=== PATIENT | female | born 1990 | race Caucasian/White ===

== ENCOUNTER 2024-03-12 05:23 | Inpatient (IN) ==
[2024-03-12] MEDS: ALBUT/IPRATROP 3MG/0.5MG NEB 3 ML VIAL ONE (05:36)
[2024-03-12] MEDS: ALBUT/IPRATROP 3MG/0.5MG NEB 3 ML VIAL NEB STA ×3 (05:52→06:11)
[2024-03-12] MEDS: methylPREDNISolone 125 MG/2 ML VIAL IV STA (05:54)
--- NOTE | 2024-03-12 05:54 | Emergency Department Note ---
Impression & Plan Dyspnea, Hypoxia, Asthma with exacerbation, URI (upper respiratory infection) ED Provider Note ED Provider Note NAME: ROYER BAH AGE:33 SEX: Female : 1990 ARRIVES VIA: Private vehicle INFORMANT: Patient ED PROVIDER(s): Lilia Dasilva DO CHIEF COMPLAINT: Shortness of breath HPI: This is a 33-year-old female who presents emergency room due to increased shortness of breath. Patient states for the last 2 days she has had cough and cold type symptoms however yesterday she began noticing it was getting harder to breathe and this morning she came in for evaluation. Patient states she does have a history of asthma that is typically very well-controlled and she only uses an inhaler as needed. She is never required hospitalization for shortness of breath or asthma exacerbation. Unknown if recent sick contact as she did travel to [place]. She states no fevers or chills, she has had nasal congestion and rhinorrhea as well as a mild sore throat. She states cough has been productive of a barber sputum, no hemoptysis noted. She denies any accompanying chest pain, abdominal pain, vomiting/diarrhea, or lower extremity swelling. PAST MEDICAL HISTORY:See Below PAST SURGICAL HISTORY:See Below FAMILY HISTORY:See Below SOCIAL HISTORY:See Below HOME MEDICATIONS:See Below ALLERGIES:See Below VITALS:See Below PHYSICAL EXAMINATION: GENERAL: alert, well appearing, well nourished, moderate distress, non-toxic EYE EXAM: normal conjunctiva, PERRL and EOM's grossly intact OROPHARYNX: no exudate, no erythema, lips, buccal mucosa, and tongue normal and mucous membranes are moist NECK: supple, no nuchal rigidity, no adenopathy, non-tender LUNGS: Clear to auscultation. Normal chest wall mechanics, bilateral expiratory wheeze, increased work of breathing, tachypnea noted HEART: no murmurs, S1 normal and S2 normal ABDOMEN: abdomen soft, non-tender, normo-active bowel sounds, no masses, no rebound or guarding. BACK: Back is symmetrical on inspection and there is no deformity SKIN: no rashes, petechiae, orbruising UPPER EXTREMITIES: upper extremities are grossly normal. FROM, nml pulses b/l. LOWER EXTREMITIES: No pitting edema. FROM, nml pulses b/l. NEURO EXAM: Normal sensorium, cranial nerves II-XII grossly intact, normal speech, no facial droop,nogross weakness of arms, no gross weakness of legs. Gross sensation intact. No ataxia. Vital Signs: reviewed and remarkable Differential Diagnosis: pneumonia, bronchitis, COPD/Asthma exacerbation, pneumothorax, pulmonary embolism, congestive heart failure, acute coronary syndrome, as well as others were considered MEDICAL DECISION MAKING: This is a 33-year-old female who presents emergency 5 due to increased shortness of breath. Patient states she began feeling as though she had picked up a cold a couple of days ago however shortness of breath began worsening yesterday. She states her breathing was worse overnight into this morning she felt as though she could not get enough air. On arrival here patient noted to be hypoxic and immediately placed in an available room and started on oxygen via nasal cannula. Patient noted to be tachypneic, with increased work of breathing, and diffuse bilateral wheezing labs drawn and sent, IV established, EKG and chest ray performed at bedside interpreted me and patient monitored on telemetry. She was given a DuoNeb treatment here with improved aeration and subsequent increased wheezing bilaterally. IV Solu-Medrol and IV magnesium added, a second and third DuoNeb added. Patient did have some improvement, however was persistently hypoxic when tested off oxygen between nebs. Repeat exams with improved air movement however only mild improvement in the bilateral expiratory wheezing noted on auscultation. Given her persistent sense of being short of breath we discussed other options for oxygen supplementation. Eventually patient converted to BiPAP which she was more comfortable with instead of high flow nasal cannula. She had decreased work of breathing and appeared more comfortable overall. Case discussed with the hospitalist team for additional evaluation and management. Patient's nasal swab noted to be positive for rhinovirus/enterovirus. No obvious infiltrate, pulmonary edema, or pleural effusion noted on chest x-ray. Patient's other labs reassuring. I suspect patient's viral URI exacerbated her underlying asthma. Consultation(s): 0650: Discussed with [facility] hospitalist team for additional evaluation. ER Treatment Provided: See below 0702: Patient reported persistent sense of SOB despite nebs and meds. We discussed HFNC vs BiPAP. Patient states she wears CPAP at home and states she routinely can't breath well thru her nose and is scheduled to see ENT on March. Diagnostics Interpreted By Me: -ECG: Normal sinus at 93, normal axis, normal intervals, no acute ST/T wave changes -Cardiac Monitoring: An order was placed for continuous cardiac monitoring. The monitor shows a rate of 96 with normal sinus rhythm. -Laboratory studies: As stated above and show below. -Imaging studies: X-ray Chest: A single view study of the chest was reviewed and was negative for cardiomegaly, focal infiltrate, effusion, pulmonary edema, or wide mediastinum. Triage Nursing Note Reviewed Prior/Outside Records Reviewed Critical Care: Critical care of 48 min performed to assess and manage high likelihood of life-threatening respiratory distress with hypoxia, involving labs and imaging performed with assessment to evaluate dyspnea diagnosis with frequent reassessment. This time includes bedside time, treatment discussions with patient/family/consultants, documentation time and excludes procedure time. Past Med/Surg History Problem List (Updated 03/12/24 @ 10:50 by Background Anastasia) Asthmatic bronchitis URI (upper respiratory infection) (Acute) Asthma with exacerbation (Acute) Hypoxia (Acute) Dyspnea (Acute) Varicella Asthma Headache Medical History (Updated 03/12/24 @ 10:50 by Background Damartín) Pain of left heel Lightheadedness Contusion of left lower arm Surgical History Hx of LASIK H/O tooth extraction Hx of LASIK Family History Aunt Breast cancer Grandfather (Paternal) Colorectal cancer Diabetes Grandmother (Paternal) Diabetes Hypercholesteremia Grandfather (Maternal) Diabetes Hypercholesteremia Hypertension Father Nephrolithiasis Social History Smoking Status: Never smoker Hx Alcohol Use: No Hx Substance Use: No Preferred Language: [place] Zealander Feels Safe at Home: Yes Allergies Allergies Allergy/AdvReac Type Severity Reaction Status Date / Time animal dander Allergy Intermediate ITCHY, Verified 03/11/23 22:32 WATERY EYES, SNEEZING, COUGH, CONGESTION pollen extracts Allergy Intermediate ITCHY, Verified 03/11/23 22:32 WATERY EYES, SNEEZING, COUGH, CONGESTION Home Meds Home Medications Medication Instructions Recorded Confirmed albuterol sulfate 90 mcg/actuation 2 puff inhalation Q6H PRN 03/11/23 03/12/24 aerosol inhaler Shortness Of Breath Or Wheezing sumatriptan succinate 50 mg tablet 0 mg PO DIRECTED PRN Migraine 03/11/23 03/12/24 (Imitrex) Headache cetirizine 10 mg tablet (Zyrtec) 10 mg PO DAILY 03/12/24 03/12/24 omeprazole 20 mg capsule,delayed 20 mg PO DAILY 03/12/24 03/12/24 release vit no.95-ferrous 1 tab PO DAILY 03/12/24 03/12/24 fumarate 28 mg-folic acid 800 mcg tablet () Results & Data (ED) Vital Signs Vital Signs - 24 hr 03/12/24 05:27 03/12/24 05:37 03/12/24 05:39 Temperature 36.9 C Temperature Source Oral Pulse Rate 105 H Pulse Rate [Apical] 103 H Pulse Strength [Apical] Respiratory Rate 26 H Respiratory Effort / Characteristics Respiratory Depth Respiratory Pattern Blood Pressure 133/85 Blood Pressure [Right Arm] 123/95 Blood Pressure Mean 101 Blood Pressure Mean [Right Arm] 104 Pulse Oximetry 87 L 92 94 Oxygen Delivery Method Room Air Nasal Cannula Nebulizer Oxygen Flow Rate 5 Fraction of Inspired Oxygen Sepsis Recent Fever Within 48 Hours No Sepsis New/Unexplained Change in Mental Status No Sepsis Action Taken by Nursing No Action Required 03/12/24 05:47 03/12/24 06:11 03/12/24 07:07 Temperature Temperature Source Pulse Rate 98 H 91 H Pulse Rate [Apical] 110 H Pulse Strength [Apical] Normal Respiratory Rate 23 18 Respiratory Effort / Characteristics Non-Labored Spontaneous Respiratory Depth Normal Respiratory Pattern Regular Blood Pressure 123/78 Blood Pressure [Right Arm] 128/94 Blood Pressure Mean 88 Blood Pressure Mean [Right Arm] 105 Pulse Oximetry 100 91 Oxygen Delivery Method Nebulizer Room Air Oxygen Flow Rate Fraction of Inspired Oxygen Sepsis Recent Fever Within 48 Hours Sepsis New/Unexplained Change in Mental Status Sepsis Action Taken by Nursing 03/12/24 07:20 03/12/24 07:29 Temperature Temperature Source Pulse Rate 101 H 109 H Pulse Rate [Apical] Pulse Strength [Apical] Respiratory Rate 20 Respiratory Effort / Characteristics Spontaneous Respiratory Depth Normal Respiratory Pattern Regular Blood Pressure Blood Pressure [Right Arm] Blood Pressure Mean Blood Pressure Mean [Right Arm] Pulse Oximetry 99 99 Oxygen Delivery Method Oxygen Flow Rate Fraction of Inspired Oxygen 35 Sepsis Recent Fever Within 48 Hours Sepsis New/Unexplained Change in Mental Status Sepsis Action Taken by Nursing Laboratory Data 03/12/24 05:47 03/12/24 05:47 Lab Results 03/12/24 03/12/24 Range/Units 05:36 05:47 WBC 12.05 H (4.8-10.8) K/ul RBC 4.51 (4.20-5.40) M/uL Hgb 13.0 (12.0-16.0) g/dl Hct 39.5 (37.0-47.0) % MCV 87.6 (80.0-100.0) fL MCH 28.8 (25.0-34.0) pg MCHC 32.9 (32.0-36.0) g/dL RDW Std Deviation 40.2 (36.4-46.3) fL RDW Coeff of Jolie 12.7 (11.5-14.5) % Plt Count 342 (130-400) K/uL MPV 9.8 (9.4-12.4) fL Immature Gran % (Auto) 0.2 % Neut % (Auto) 78.1 % Lymph % (Auto) 9.0 % [place] % (Auto) 5.3 % Eos % (Auto) 7.1 % Baso % (Auto) 0.3 % Neut # (Auto) 9.41 H (1.40-6.50) K/uL Lymph # (Auto) 1.08 L (1.20-3.40) K/uL [place] # (Auto) 0.64 H (0.11-0.59) K/uL Eos # (Auto) 0.85 H (0.00-0.50) K/uL Baso # (Auto) 0.04 (0.00-0.20) K/uL Immature Gran # (Auto) 0.03 (0.01-0.20) K/uL Sodium 136 (136-145) mmol/L Potassium 4.1 (3.5-5.1) mmol/L Chloride 103 (98-107) mmol/L Carbon Dioxide 26 (21-32) mmol/L Anion Gap 7 (3-11) BUN 9 (6-23) mg/dl Creatinine 0.70 (0.6-1.2) mg/dl Est Cr Clr Drug Dosing 144.0 ml/min eGFR 117.04 BUN/Creatinine Ratio 12.9 (10-20) Glucose 137 H (70-99(Fasting)) mg/dl Calcium 9.2 (8.6-10.3) mg/dl Magnesium 1.9 (1.7-2.4) mg/dl Total Bilirubin 0.4 (0.2-1.0) mg/dl AST 14 (13-39) U/L ALT 13 (7-52) U/L Alkaline Phosphatase 75 (34-104) U/L Troponin I High Sens 5.6 (0-14) pg/ml Total Protein 7.8 (6.0-8.3) gm/dl Albumin 4.1 (3.4-5.0) gm/dl Globulin 3.7 (2.5-4.0) gm/dl Albumin/Globulin Ratio 1.1 (0.9-2) Lipase 6 L (11-82) U/L TSH 1.881 (0.300-4.500) uIu/ml HCG, Qual Negative (Negative) Adenovirus (PCR) Not Detected (NotDetected) B. pertussis DNA (PCR) Not Detected (NotDetected) B.parapertussis DNA PCR Not Detected (NotDetected) C. pneumoniae DNA (PCR) Not Detected (NotDetected) Coronavirus OC43 (PCR) Not Detected (NotDetected) Coronavirus HKU1 (PCR) Not Detected (NotDetected) Coronavirus 229E (PCR) Not Detected (NotDetected) SARS-CoV-2 (PCR) Not Detected (NotDetected) Coronavirus NL63 (PCR) Not Detected (NotDetected) Human Metapneumovir PCR Not Detected (NotDetected) Influenza Type A (PCR) Not Detected (NotDetected) Influenza Type B (PCR) Not Detected (NotDetected) M. pneumoniae (PCR) Not Detected (NotDetected) Parainfluenza 1 (PCR) Not Detected (NotDetected) Parainfluenza 2 (PCR) Not Detected (NotDetected) Parainfluenza 3 (PCR) Not Detected (NotDetected) Parainfluenza 4 (PCR) Not Detected (NotDetected) RSV (PCR) Not Detected (NotDetected) Entero/Rhino (PCR) DETECTED A (NotDetected) Administered Medications Albuterol (Albut/Ipratrop 3mg/0.5mg Neb 3 Ml Vial) 3 ml NEB QIDR BILLY; Protocol Stop: 04/11/24 10:59 Last Admin: 03/12/24 18:20 Dose: 3 ml Documented By: [id number] Admin: 03/12/24 14:32 Dose: 3 ml Documented By: [id number] Admin: 03/12/24 11:17 Dose: 3 ml Documented By: MÓNICA Levofloxacin/Dextrose (Levaquin/D5w) 750 mg in 150 mls @ 100 mls/hr IV Q24H BILLY; Protocol Stop: 03/17/24 10:59 Last Infusion: 03/12/24 13:33 Dose: Infused Documented By: Admin: 03/12/24 11:55 Dose: 100 mls/hr Documented By: JAVIER Methylprednisolone 60 mg/ (Syringe) 0.96 mls @ 1.5 mls/min IV Q6H BILLY Stop: 04/11/24 11:59 Last Admin: 03/12/24 23:53 Dose: 1.5 mls/min Documented By: chemical cell changer: 03/12/24 18:25 Dose: 1.5 mls/min Documented By: Admin: 03/12/24 12:52 Dose: 1.5 mls/min Documented By: JAVIER Discontinued Medications Albuterol (Albut/Ipratrop 3mg/0.5mg Neb 3 Ml Vial) Confirm Administered Dose 3 ml .ROUTE .STK-MED ONE Stop: 03/12/24 05:37 Last Admin: 03/12/24 05:36 Dose: 3 ml Documented By: WILLIAM Albuterol (Albut/Ipratrop 3mg/0.5mg Neb 3 Ml Vial) 3 ml NEB NOW STA; Protocol Stop: 03/12/24 05:45 Last Admin: 03/12/24 05:52 Dose: 3 ml Documented By: WILLIAM Albuterol (Albut/Ipratrop 3mg/0.5mg Neb 3 Ml Vial) 3 ml NEB NOW STA; Protocol Stop: 03/12/24 05:55 Last Admin: 03/12/24 05:58 Dose: 3 ml Documented By: WILLIAM Albuterol (Albut/Ipratrop 3mg/0.5mg Neb 3 Ml Vial) 3 ml NEB NOW STA; Protocol Stop: 03/12/24 06:07 Last Admin: 03/12/24 06:11 Dose: 3 ml Documented By: WILLIAM Albuterol (Albuterol 0.083% Nebu Soln 3 Ml Vial) 2.5 mg NEB NOW STA; Protocol Stop: 03/12/24 06:43 Last Admin: 03/12/24 06:47 Dose: 2.5 mg Documented By: WILLIAM Cetirizine HCl (Cetirizine Hcl 10 Mg Tablet) 10 mg PO NOW ONE Stop: 03/12/24 06:43 Last Admin: 03/12/24 06:45 Dose: 10 mg Documented By: WILLIAM Magnesium Sulfate/Dextrose (Magnesium Sulfate / D5w) 1 gm in 100 mls @ 100 mls/hr IV NOW STA Stop: 03/12/24 06:44 Last Infusion: 03/12/24 06:50 Dose: Infused Documented By: Admin: 03/12/24 05:55 Dose: 100 mls/hr Documented By: WILLIAM Magnesium Sulfate/Dextrose (Magnesium Sulfate / D5w) 1 gm in 100 mls @ 100 mls/hr IV NOW STA Stop: 03/12/24 07:41 Last Infusion: 03/12/24 08:05 Dose: Infused Documented By: Admin: 03/12/24 06:50 Dose: 100 mls/hr Documented By: WILLIAM Methylprednisolone (Methylprednisolone 125 Mg/2 Ml Vial) 60 mg IV NOW STA Stop: 03/12/24 05:45 Last Admin: 03/12/24 05:54 Dose: 60 mg Documented By: WILLIAM Discharge Plan Visit Data Chief Complaint: Respiratory Problems Stated Complaint: HAVING TROUBLE BREATHING X 2DAYS ED Provider: Lilia Dasilva Discharge Problem: Dyspnea, Hypoxia, Asthma with exacerbation, URI (upper respiratory infection) Patient Disposition: Admitted As Inpatient Discharge Instructions Interventions: ED Discharge Assessment Last Done: 03/12/24 10:13
[2024-03-12] MEDS: MAGNESIUM SULFATE / D5W 1 GM/100 ML BAG IV STA ×2 (05:55→06:50)
[2024-03-12 06:07] LABS: Basophils # (auto) 0.04 K/uL (0.00-0.20); Basophils % (auto) 0.3 %; Eosinophils # (auto) 0.85 K/uL (0.00-0.50); Eosinophils % (auto) 7.1 %; Hematocrit (blood only) 39.5 % (37.0-47.0); Immature Granulocytes # (auto) 0.03 K/uL (0.01-0.20); Immature Granulocytes % (auto) 0.2 %; Lymphocytes # (auto) 1.08 K/uL (1.20-3.40); Mean Corpuscular Hemoglobin 28.8 pg (25.0-34.0); Mean Corpuscular Hgb Conc 32.9 g/dL (32.0-36.0); Mean Corpuscular Volume 87.6 fL (80.0-100.0); Mean Platelet Volume 9.8 fL (9.4-12.4); Monocytes # (auto) 0.64 K/uL (0.11-0.59); Monocytes % (auto) 5.3 %; Neutrophils # (auto) 9.41 K/uL (1.40-6.50); Neutrophils % (auto) 78.1 %; Platelet Count 342 K/uL (130-400); RDW Coefficient of Variation 12.7 % (11.5-14.5); RDW Standard Deviation 40.2 fL (36.4-46.3); Red Blood Count 4.51 M/uL (4.20-5.40); White Blood Count 12.05 K/ul (4.8-10.8)
[2024-03-12 06:16] LABS: Pregnancy Test, Serum Negative (Negative)
[2024-03-12 06:20] LABS: Albumin Globulin Ratio 1.1 (0.9-2); Albumin Level 4.1 gm/dl (3.4-5.0); BUN Creatinine Ratio 12.9 (10-20); Bilirubin,Total 0.4 mg/dl (0.2-1.0); Calcium 9.2 mg/dl (8.6-10.3); Globulin 3.7 gm/dl (2.5-4.0); Magnesium 1.9 mg/dl (1.7-2.4); Potassium 4.1 mmol/L (3.5-5.1); Total Protein 7.8 gm/dl (6.0-8.3)
[2024-03-12 06:27] LABS: Troponin I High Sensitivity 5.6 pg/ml (0-14)
[2024-03-12 06:36] LABS: Thyroid Stimulating Hormone 1.881 uIu/ml (0.300-4.500)
[2024-03-12 06:40] LABS: Adenovirus PCR Not Detected (NotDetected); Bordetella parapertussis PCR Not Detected (NotDetected); Bordetella pertussis PCR Not Detected (NotDetected); Chlamydia pneumoniae PCR Not Detected (NotDetected); Coronavirus 229E PCR Not Detected (NotDetected); Coronavirus CoV-2 (COVID19)PCR Not Detected (NotDetected); Coronavirus HKU1 PCR Not Detected (NotDetected); Coronavirus NL63 PCR Not Detected (NotDetected); Coronavirus OC43PCR Not Detected (NotDetected); Human Metapneumovirus PCR Not Detected (NotDetected); Influenza A PCR Not Detected (NotDetected); Influenza B PCR Not Detected (NotDetected); Mycoplasma pneumoniae PCR Not Detected (NotDetected); Parainfluenza Virus 1 PCR Not Detected (NotDetected); Parainfluenza Virus 2 PCR Not Detected (NotDetected); Parainfluenza Virus 3 PCR Not Detected (NotDetected); Parainfluenza Virus 4 PCR Not Detected (NotDetected); Respiratory Syncytial VirusPCR Not Detected (NotDetected); Rhinovirus/Enterovirus PCR DETECTED (NotDetected)
[2024-03-12] MEDS: CETIRIZINE HCL 10 MG TABLET PO ONE (06:45)
[2024-03-12] MEDS: ALBUTEROL 0.083% NEBU SOLN 3 ML VIAL NEB STA (06:47)
--- NOTE | 2024-03-12 07:35 | XRay Report ---
EXAM: XR chest 1V portable CLINICAL HISTORY: SOB, HYPOXIA X2DAYS. TECHNIQUE: An X-ray image of the chest is obtained in AP projection. COMPARISON: Prior study dated 03/11/2023 FINDINGS: Pulmonary Parenchyma: Prominent bilateral broncho vascular markings seen, advised for clinical correlation could be due to bronchiolitis versus pulmonary vascular congestion Lungs are clear bilaterally. No evidence of consolidation, collapse, or focal opacities. No pulmonary nodules are identified. No evidence of pleural effusion or pleural thickening. Heart and Mediastinum: Heart size and shape are normal. No mediastinal widening or masses. No hilar or mediastinal lymphadenopathy. Bony Thorax: The bony thorax appears intact without fractures or deformities. Soft Tissues: Soft tissues overlying the chest wall are unremarkable. IMPRESSION: New prominent bilateral broncho vascular markings seen, advised for clinical correlation could be due to bronchiolitis versus pulmonary vascular congestion Electronically signed by Kiara Dominguez 03-12-2024 07:35 AM
--- NOTE | 2024-03-12 07:58 | History & Physical Report ---
Date of Service March 12, 2024 Assessment & Plan (1) Asthmatic bronchitis: Plan: Continue scheduled parenteral steroids. Levaquin, day 1. Await sputum culture results. Scheduled nebulizer treatments (2) Asthma with exacerbation: Plan: Parenteral steroid therapy. Scheduled nebulizer treatments Plan Hopeful discharge back to home within the next day or 2. At discharge she probably will be on an oral antibiotic and a prednisone tapering dose History of Present Illness Chief Complaint: Wheezing, shortness of breath, productive cough Primary Care Provider: Umang Oropeza, 33-year-old white female with a history of intrinsic asthma. For the past several days she has had a productive cough of discolored sputum but no overt hemoptysis. She has been wheezing and is very short of breath. She came to the ED for evaluation. Chest x-ray is clear. Physical examination is consistent with bacterial asthmatic bronchitis. She tested positive for rhinovirus but my clinical suspicion is this has little to do with her current clinical situation at this point. She has received parenteral steroid therapy and breathing treatments in the ED. She is currently on BiPAP which I doubt if she needs going forward. She is admitted for further evaluation and treatment. Parenteral steroid therapy will continue along with intravenous Levaquin. Sputum culture has been obtained. Scheduled breathing treatments ordered. Allergies Allergy/AdvReac Type Severity Reaction Status Date / Time animal dander Allergy Intermediate ITCHY, Verified 03/11/23 22:32 WATERY EYES, SNEEZING, COUGH, CONGESTION pollen extracts Allergy Intermediate ITCHY, Verified 03/11/23 22:32 WATERY EYES, SNEEZING, COUGH, CONGESTION Home Medications Medication Instructions Recorded Confirmed Type albuterol sulfate 90 mcg/actuation 2 puff inhalation DIRECTED PRN 03/11/23 03/11/23 History aerosol inhaler Shortness Of Breath Or Wheezing sumatriptan succinate 50 mg tablet 0 mg PO DIRECTED PRN Migraine 03/11/23 03/11/23 History (Imitrex) Headache Past Med/Surg History Problem List (Updated 03/12/24 @ 07:57 by Blu Louis MD) Asthmatic bronchitis URI (upper respiratory infection) (Acute) Asthma with exacerbation (Acute) Hypoxia (Acute) Dyspnea (Acute) Varicella Asthma Headache Medical History (Updated 03/12/24 @ 07:57 by Blu Louis MD) Pain of left heel Lightheadedness Contusion of left lower arm Surgical History Hx of LASIK H/O tooth extraction Hx of LASIK Family History Aunt Breast cancer Grandfather (Paternal) Colorectal cancer Diabetes Grandmother (Paternal) Diabetes Hypercholesteremia Grandfather (Maternal) Diabetes Hypercholesteremia Hypertension Father Nephrolithiasis Social History Smoking Status: Never smoker Preferred Language: Lithuanian Feels Safe at Home: Yes Review of Systems 2 Review of Systems: Constitutionalno fever or chills ENTno blurred vision, no double vision, no epistaxis, no sore throat Respiratoryproductive cough. Wheezing. Shortness of breath. No hemoptysis. No pleuritic pain Cardiacno palpitations, no chest pain, no syncope Paul nausea, vomiting, diarrhea, melena, hematochezia GUno urinary retention, no urinary incontinence, no dysuria, no hematuria Musculoskeletalno joint pain, no muscle tenderness Skinno bruising, no rashes, no pruritus Neurono isolated weakness, no paresthesia, no weakness Psychno depression, no anxiety Physical Exam 2 Physical Exam: General-alert and oriented x3, no fever, no chills HEENT-head atraumatic and normocephalic, pupils equal and reactive to light, extraocular muscles intact Neck-no lymphadenopathy or thyromegaly, trachea midline Chest-midline rhonchi. Diffuse bilateral expiratory wheezes. No dullness to percussion. Cardiac-regular rate and rhythm, normal S1 and S2 Abdomen-normal bowel sounds, no hepatosplenomegaly Extremities-no cyanosis, clubbing, or edema Neuro-cranial nerves II through XII intact, motor and sensory function within normal limits, strength symmetrical, no focal deficits Psych-normal affect, normal mood Results & Data Results & Data Vital Signs (Past 12 Hours) Vital Signs Temp Pulse Pulse Resp BP BP Pulse Ox 03/12/24 07:29 109 H 99 03/12/24 07:20 101 H 20 99 03/12/24 07:07 110 H 18 128/94 91 03/12/24 06:11 91 H 23 123/78 100 03/12/24 05:47 98 H 03/12/24 05:39 103 H 26 H 123/95 94 03/12/24 05:37 92 03/12/24 05:27 36.9 C 105 H 133/85 87 L O2 Del Method O2 Flow Rate FiO2 03/12/24 07:29 03/12/24 07:20 35 03/12/24 07:07 Room Air 03/12/24 06:11 Nebulizer 03/12/24 05:47 03/12/24 05:39 Nebulizer 03/12/24 05:37 Nasal Cannula 5 03/12/24 05:27 Room Air Laboratory Results 03/12/24 05:47 03/12/24 05:47 Code Status & VTE Plan Code Status Full code PG Care Time/CCT Total # of Minutes Spent Total Time Spent with Patient: Total time spent is greater than 50% in coordination of care (as documented) at patient's floor/unit and/or counseling patient: Coding Level of Care Code 37271 INT INP/OBS CARE 3/75MIN Diagnoses Asthmatic bronchitis J45.909 Asthma with exacerbation J45.901
[2024-03-12] MEDS ORDERED: methylPREDNISolone 10 mg/mL (For Ped Dose < 7mg) IV SCH (10:53)
[2024-03-12] MEDS ORDERED: ACETAMINOPHEN 325 MG TAB PO PRN (10:53)
[2024-03-12] MEDS ORDERED: ONDANSETRON INJ 2 MG/ML 2 ML VIAL IV PRN (10:53)
[2024-03-12] MEDS: ALBUT/IPRATROP 3MG/0.5MG NEB 3 ML VIAL NEB SCH (11:17)
[2024-03-12] MEDS: levoFLOXacin/D5W 750 MG/150 ML BAG IV SCH (11:55)
--- NOTE | 2024-03-12 12:13 | Electrocardiogram Report ---
Test Reason : Blood Pressure : */* mmHG Vent. Rate : 93 BPM Atrial Rate : 93 BPM P-R Int : 136 ms QRS Dur : 80 ms QT Int : 356 ms P-R-T Axes : 69 64 20 degrees QTcB Int : 442 ms Normal sinus rhythm Normal ECG When compared with ECG of 10-Aug-2014 19:08, No significant change was found Confirmed by Harjinder Gaming ([id number]) on 03/12/2024 12:12:25 PM Referred By: Confirmed By: Harjinder Gaming
[2024-03-12] MEDS: methylPREDNISolone 60 MG in SYRINGE 0 ML IV SCH (12:52)
--- NOTE | 2024-03-13 10:53 | Hospitalist Progress Note ---
Date of Service March 13, 2024 Assessment & Plan (1) Asthmatic bronchitis: Plan: Improving. Continue scheduled parenteral steroids. Levaquin, day 2. Sputum Gram stain noted. Sputum culture results remain pending. Continue scheduled nebulizer treatments (2) Asthma with exacerbation: Plan: Parenteral steroid therapy has helped considerably. Scheduled nebulizer treatments. She will be placed on a prednisone tapering dose at discharge Plan Hopeful discharge back to home tomorrow, March 14. At discharge she will be on an oral antibiotic and a prednisone tapering dose Admission and Anticipated Discharge Date Admission Date: March 12, 2024 Subjective Alert and oriented. No distress. Subjectively, she feels shortness of breath with exertion. She has some facial flushing from steroid therapy. is at the bedside Review of Systems 2 Review of Systems: Constitutionalno fever or chills ENTno blurred vision, no double vision, no epistaxis, no sore throat Respiratorycough is now nonproductive. Wheezing has almost completely resolved. Shortness of breath with minimal exertion persists. No hemoptysis. No pleuritic pain Cardiacno palpitations, no chest pain, no syncope Paul nausea, vomiting, diarrhea, melena, hematochezia GUno urinary retention, no urinary incontinence, no dysuria, no hematuria Musculoskeletalno joint pain, no muscle tenderness Skinno bruising, no rashes, no pruritus Neurono isolated weakness, no paresthesia, no weakness Psychno depression, no anxiety Physical Exam 2 Physical Exam: General-alert and oriented x3, no fever, no chills HEENT-head atraumatic and normocephalic, pupils equal and reactive to light, extraocular muscles intact Neck-no lymphadenopathy or thyromegaly, trachea midline Chest-wheezing has nearly totally resolved. Midline rhonchi have resolved. No dullness to percussion. Cardiac-regular rate and rhythm, normal S1 and S2 Abdomen-normal bowel sounds, no hepatosplenomegaly Extremities-no cyanosis, clubbing, or edema Skinfacial flushing noted from steroid therapy Neuro-cranial nerves II through XII intact, motor and sensory function within normal limits, strength symmetrical, no focal deficits Psych-normal affect, normal mood Results & Data Results & Data Vital Signs (Past 12 Hours) Vital Signs Temp Pulse Pulse Resp BP Pulse Ox O2 Del Method 03/13/24 08:00 Room Air 03/13/24 07:43 36.5 C 87 18 121/73 92 Room Air 03/13/24 07:00 87 03/13/24 06:17 86 24 95 Room Air 03/13/24 04:45 37.0 C 98 H 20 95 Oxymask 03/12/24 23:47 Room Air, CPAP 03/12/24 23:36 36.4 C L 92 H 20 110/61 97 Oxymask O2 Flow Rate 03/13/24 08:00 03/13/24 07:43 03/13/24 07:00 03/13/24 06:17 03/13/24 04:45 4 03/12/24 23:47 03/12/24 23:36 4 Laboratory Results 03/12/24 05:47 03/12/24 05:47 PG Care Time/CCT Total # of Minutes Spent Total Time Spent with Patient: Total time spent is greater than 50% in coordination of care (as documented) at patient's floor/unit and/or counseling patient: Coding Level of Care Code 44766 SUB INP/OBS CARE 2/35MIN Diagnoses Asthmatic bronchitis J45.909 Asthma with exacerbation J45.901
[2024-03-13] MEDS ORDERED: LORazepam 1 MG TAB PO PRN (17:29)
[2024-03-13] MEDS: LEVALBUTEROL 1.25 MG/3 ML NEB NEB SCH (19:54)
--- NOTE | 2024-03-14 11:49 | Discharge Summary ---
Discharge Summary Date of Service March 14, 2024 Principal Dx & Hospital Course #1 = Principal Diagnosis (1) Asthmatic bronchitis: Resolved. She is back to her baseline. She was treated while hospitalized with scheduled parenteral steroids and intravenous Levaquin. She will continue prednisone in a tapering dose fashion at discharge along with oral Levaquin for 5 more days. (2) Asthma with exacerbation: Resolved with parenteral steroid therapy and scheduled nebulizer treatments. She will be placed on a prednisone tapering dose at discharge Plan Home today, March 14, on Levaquin and prednisone tapering dose. Admission HPI Per Admitting Provider 33-year-old white female with a history of intrinsic asthma. For the past several days she has had a productive cough of discolored sputum but no overt hemoptysis. She has been wheezing and is very short of breath. She came to the ED for evaluation. Chest x-ray is clear. Physical examination is consistent with bacterial asthmatic bronchitis. She tested positive for rhinovirus but my clinical suspicion is this has little to do with her current clinical situation at this point. She has received parenteral steroid therapy and breathing treatments in the ED. She is currently on BiPAP which I doubt if she needs going forward. She is admitted for further evaluation and treatment. Parenteral steroid therapy will continue along with intravenous Levaquin. Sputum culture has been obtained. Scheduled breathing treatments ordered. Discharge Exam General-alert and oriented x3, no fever, no chills HEENT-head atraumatic and normocephalic, pupils equal and reactive to light, extraocular muscles intact Neck-no lymphadenopathy or thyromegaly, trachea midline Chest-no audible wheezing. Midline rhonchi have resolved. No dullness to percussion. Cardiac-regular rate and rhythm, normal S1 and S2 Abdomen-normal bowel sounds, no hepatosplenomegaly Extremities-no cyanosis, clubbing, or edema Skinfacial flushing noted from steroid therapy Neuro-cranial nerves II through XII intact, motor and sensory function within normal limits, strength symmetrical, no focal deficits Psych-normal affect, normal mood Discharge Plan Discharge Items Patient Disposition: Home - Self-Care Reason For Visit: ASTHMATIC BRONCHITIS Discharge Diagnosis: Asthmatic bronchitis, acute exacerbation intrinsic asthma Activity: Resume your previous activity Non-emergency contact: Primary Care Provider Call non-emergency contact if: your symptoms worsen Follow-up/Referrals: Santarelli,Umang M., DO [Primary Care Provider] - Diet: Regular Addtl Attending Provider Instructions: Take Levaquin once daily for 5 more days. Take prednisone in a tapering dose fashion as directed. Continue other medications as before Pending Studies at Discharge: No Stand-Alone Forms: [facility] [employer], Smoking Cessation Medications and DC Order Prescriptions: New levofloxacin 500 mg tablet 500 mg PO DAILY 5 Days Qty: 5 0RF prednisone 10 mg tablet See Rx Instructions .ROUTE .COMPLEX Qty: 12 0RF Rx Instructions: 10 mg orally 3 times a day for 2 days, then 10 mg twice a day for 2 days, then 10 mg once a day for 2 days, then stop Continued sumatriptan succinate [Imitrex] 50 mg Tablet 0 mg PO DIRECTED PRN (Reason: Migraine Headache) Rx Instructions: PT UNSURE OF STRENGTH, UNABLE TO VERIFY. take 1 tab at onset of headache; if no relief may repeat 1 tab after at least 2 hrs; max = 4 tabs/24 hr cetirizine [Zyrtec] 10 mg Tablet 10 mg PO DAILY omeprazole 20 mg capsule,delayed release(DR/EC) 20 mg PO DAILY PNV [id number]-[id number] fumarate-FA [] 28 mg iron- 800 mcg Tablet 1 tab PO DAILY albuterol sulfate 90 mcg/actuation Hfa Aerosol Inhaler 2 puff INHALATION Q6H PRN (Reason: Shortness Of Breath Or Wheezing) Qty: 1 0RF Discharge Orders: Discharge Order (Routine); Ordered 03/14/24 Ordered By: Blu Louis Admission Data Admit Date/Time: 03/12/24 07:37 Attending Provider: Blu Louis Admit Provider: Blu Louis Primary Care Provider: Umang Oropeza Other Providers: Blu Louis Hospital Stay Data Consultations 03/12/24 07:01 ED Decision to Admit Stat Pending Results Patient Have Any Pending Studies at Discharge: No Discharge Instructions Given to Patient (Per Discharging Provider) Take Levaquin once daily for 5 more days. Take prednisone in a tapering dose fashion as directed. Continue other medications as before Total Time Total Time Spent Total Time Spent (In Minutes): 45 minutes Coding Level of Care Code 92353 INP/OBS DISCH >30 MIN Diagnoses Asthmatic bronchitis J45.909 Asthma with exacerbation J45.901
== END 2024-03-14 14:20 | disposition home or self-care (01) | DRG 203 ==
LOC: SUATTDRO → ED 05:23 → 2N 07:37